=== PATIENT | female | born 1970 | race Caucasian/White ===

== ENCOUNTER 2021-11-04 13:25 | Emergency (ER) | payer OTHER ==
[2021-11-04 13:36] VITALS: BP 88/63; PULSE 72; RESP 19; TEMP 99.4; BMI 31.6
== END 2021-11-04 13:45 | disposition left against medical advice (07) ==
LOC: JER 13:25
DX: T67.5XXA Heat exhaustion, unspecified, initial encounter (principal)
CPT/HCPCS: 99281-25